=== PATIENT | male | born 1955 | race African-American/Black ===

== ENCOUNTER 2024-05-01 08:47 | Emergency (ER) | payer MEDICARE, OTHER | END 2024-05-01 11:14 | disposition home or self-care (01) | LOC: BURERS 08:47 | DX: S70.01XA Contusion of right hip, initial encounter (principal); J44.9 Chronic obstructive pulmonary disease, unspecified; I11.0 Hypertensive heart disease with heart failure; I50.9 Heart failure, unspecified; I25.110 Atherosclerotic heart disease of native coronary artery with unstable angina pectoris; I25.2 Old myocardial infarction; W19.XXXA Unspecified fall, initial encounter; Z86.73 Personal history of transient ischemic attack (TIA), and cerebral infarction without residual deficits | CPT/HCPCS: 99283 ==